=== PATIENT | male | born 1980 | race Caucasian/White ===

== ENCOUNTER 2021-09-10 11:58 | Outpatient (CLI) | payer BC, SELFPAY ==
[2021-09-10 14:47] LABS: SARS-CoV-2 RNA PCR Negative (Negative)
== END 2021-09-10 11:59 | disposition home or self-care (01) ==
LOC: CHSLAB 12:03
PROVIDERS: PCP Family Medicine; Visit Provider Family Medicine
DX: Z20.822 Contact with and (suspected) exposure to COVID-19 (principal)
CPT/HCPCS: C9803; U0003; U0005

== ENCOUNTER 2025-05-14 00:54 | Day surgery (SDC) | payer OTHER, SELFPAY ==
[2025-04-29 14:37] VITALS: BMI 37.6
--- OUTSIDE RECORDS SUMMARY | 2025-05-14 00:57 | XMS_ITS | Continuity of Care Document ---
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 Role Phone Barbara He MD Unavailable Unavailable Allergies, Adverse Reactions, Alerts Substance Reaction Status Criticality Penicillins Diarrhea Active No Information Medications Medication Instructions Dosage Effective Dates (start - stop) Status Comments Xolair 150 mg subcutaneous solution inject 2.4 milliliter (300mg) by Subcutaneous route every 4 weeks - Active EpiPen 2-Ravindra 0.3 mg/0.3 mL injection, auto-injector inject 0.3 milliliter by intramuscular route once as needed for anaphylaxis 0.3 MG - Active Benadryl 25 mg capsule take 2 capsule (5 0MG) by oral route every 4 - 6 hours as needed 50 MG - Active Procedures Procedure Date Est (Level 4) OFFICE/OUTPATIENT VISIT Au Xolair Drug Xolair Administration-Complex 7 Xolair Aministration-Complex 2 17 Est (Level 4) OFFICE/OUTPATIENT VISIT Ju Est (Level 4) OFFICE/OUTPATIENT VISIT Ja Est (Level 4) OFFICE/OUTPATIENT VISIT Est (Level 4) OFFICE/OUTPATIENT VISIT Ma Est (Level 3) OFFICE/OUTPATIENT VISIT De Est (Level 3) OFFICE/OUTPATIENT VISIT De Est (Level 3) OFFICE/OUTPATIENT VISIT Se Est (Level 3) OFFICE/OUTPATIENT VISIT Ju Perc Test New (Level 4) OFFICE/OUTPATIENT VISIT Wv Advance Directives Directive Yes / No Effective Date File Name No Information Encounters Encounter Description Practice Location Reason(s) For Visit Diagnoses Date Provider Providers Copied on Encounter [facility], [address] [place] [address], [place], [place], [id number], tel:[phone] [facility] No Information 7 Ying Jimenez. [address] [place] [address], [place], [place], [id number] , . tel: [phone] [facility], [address] [place] [address], [id number], tel:[phone] [facility] No Information 7 Anjali Oliveira. [address] [place] [address], [place], [place], [id number] , . tel: [phone] Est (Level 4) OFFICE/OUTPA TIENT VISIT [facility], [address] [place] [address], [id number], tel:[phone] [facility] hives (chief complaint) Idiopathic urticariaAngione urotic edema, subsequent encounter 7 Sybil Lund. [address] [place] [address], [place], [place], [id number] , [place]. tel: [phone] Referring Provider: Kevon Connelly, [address] [place] [address], [place], [address] . tel:[phone] Est (Level 4) OFFICE/OUTPA TIENT VISIT [facility], [address] [place] [address], [id number], [place] tel:[phone] [facility] hives (chief complaint) Idiopathic urticaria 6 Sybil Lund. [address] [place] [address], [id number] , . tel: [phone] Referring Provider: Kevon Connelly, [address] [place] [address], [place], [place], [address] [place] [address] . tel:[phone] Est (Level 4) OFFICE/OUTPA TIENT VISIT [facility], [address] [place] [address], [address] [place] [address], tel:[phone] [facility] hives (chief complaint) Urticaria 5 Sybil Lund. [address] [place] [address], [address] [place] [address] , [place]. tel:[phone] Referring Provider: Kevon Connelly, [address] [place] [address], [place], [place], [address] [place] [address] . tel:[phone] Est (Level 4) OFFICE/OUTPA TIENT VISIT [facility], [address] [place] [address], [address] [place] [address], tel:[phone] [facility] urticaria and angioedema (chief complaint) UrticariaAngione urotic edema, not elsewhere classified 4 Sybil Lund. [address] [place] [address], [address] [place] [address] , [place]. tel:[phone] Referring Provider: Kevon Connelly, [address] [place] [address], [place], [place], [address] [place] [address] . tel:[phone] Est (Level 4) OFFICE/OUTPA TIENT VISIT [facility], [address] [place] [address], [address] [place] [address], [place] tel:[phone] [facility] urticaria and angioedema (chief complaint) UrticariaAngione urotic edema, not elsewhere classified 3 Sybil Lund. [address] [place] [address], [address] [place] [address] , [place]. tel:[phone] Referring Provider: Kevon Connelly, [address] [place] [address], [place], [address] [place] [address] . tel:[phone] Est (Level 3) OFFICE/OUTPA TIENT VISIT [facility], [address] [place] [address], [address] [place] [address], tel:[phone] [facility] hives (chief complaint) Unspecified urticariaAngione urotic edema, not elsewhere classified 2 Sybil Lund. [address] [place] [address], [place] [address], [place], [address] [place] [address] , . tel: [phone] Referring Provider: Kevon Connelly, [address] [place] [address], [place], [address] [place] [address] . tel:[phone] Est (Level 3) OFFICE/OUTPA TIENT VISIT [facility], [address] [place] [address], [address] [place] [address], tel:[phone] [facility] hives (chief complaint) Unspecified urticaria 1 Sybil Lund. [address] [place] [address], [place] [address], [place], [address] [place] [address] , . tel: [phone] Referring Provider: Kevon Connelly, [address] [place] [address], [place], [address] [place] [address] . tel:[phone] Est (Level 3) OFFICE/OUTPA TIENT VISIT [facility], [address] [place] [address], [address] [place] [address], tel:[phone] [facility] hives (chief complaint) Unspecified urticariaAngione urotic edema, not elsewhere classified 1 Sybil Lund. [address] [place] [address], [place] [address], [place], [address] [place] [address] , . tel:[phone] Referring Provider: eKvon Connelly, [address] [place] [address], [place], [address] [place] [address] . tel:[phone] [facility], [address] [place] [address], [address] [place] [address], tel:[phone] [facility] Unspecified urticaria 1 Sybil Lund. [address] [place] [address], [place] [address], [place], [address] [place] [address] , . tel: [phone] Referring Provider: Kevon Connelly, [address] [place] [address], [place], [address] [place] [address] . tel:[phone] [facility], [address] [place] [address], [place], [address] [place] [address], tel:[phone] [facility] Unspecified urticaria 1 Sybil Lund. [address] [place] [address], [place], [address] [place] [address] , . tel:[phone] Referring Provider: Kevon Connelly, [address] [place] [address], [place], [address] [place] [address] . tel:[phone] Est (Level 3) OFFICE/OUTPA TIENT VISIT [facility], [address] [place] [address], [address] [place] [address], tel:[phone] [facility] urticaria (chief complaint) Unspecified urticariaUnspeci fied urticariaAngione urotic edema, not elsewhere classified 1 Sybil Lund. [address] [place] [address], [place], [address] [place] [address] , . tel: [phone] Referring Provider: Kevon Connelly, [address] [place] [address], [place], [address] [place] [address] . tel:[phone] New (Level 4) OFFICE/OUTPA TIENT VISIT [facility], [address] [place] [address], [address] [place] [address], tel:[phone] [facility] hives (chief complaint) Unspecified urticariaAngione urotic edema, not elsewhere classified 1 Sybil Lund. [address] [place] [address], [place], [address] [place] [address] , . tel:[phone] Referring Provider: Kevon Connelly, [address] [place] [address], [place], [address] [place] [address] . tel:[phone] Family History Family Member Type Diagnosis Age At Onset No Information Payers Payer name Insurance type Covered constitution party ID Luis M calderon(s) [facility] [place] [id number] Social History Type Description Quantity Date Captured Comments Alcohol Use Details Unknown Caffeine Use Details Unknown Tobacco Use Status No Information Smoking Status No Information Sex Male Chief Complaint And Reason For Visit No Information Reason For Referral Reason For Referral No Information Plan Of Treatment Date Type Action Status Future Order: Lab Order CBC With Differential ([id number]), Ordered on: Ordered Future Order: Lab Order Creatini ne, Serum ([id number]), Ordered on: Ordered Future Order: Lab Order Comp. Me tabolic Panel (14) ([id number]), Sent on: Sent Future Order: Lab Order CBC With Differential/Platelet ([id number]), Sent on: Sent History Of Present Illness Encounter Date Complaint History Of Prese nt Illness hives He has been unde r my care for chronic idiopathic urticaria for 6 years and was last seen a year ago. He had most recently been on cyclosporine. He has had periods of control and periods without any symptoms even without treatment for up to 6 months; however, he recently noted that he continued to have hives in spite of use of cyclosporine, so he stopped. He obtains relief only from Benadryl. He takes up to 75 mg every 4 hours and has not had sedation with this dose. He has not been on oral steroids in the past year, and they typically have afforded only litte relief. He has has some bouts of angioedema. He has missed work before but not recently due to the hifes. He repots that ibuprofen causes the hives to flare. He does tolerate Tylenol. He has no new complaints. He is considering starting Xolair since other modes of therapy have failed to control his hives hives He was last seen in September 2014. He took cyclosporine for a few months, and then stopped. He weaned off it and was asymptomatic until a month ago . They gradually returned and then have been more intense. He is now taking 75 mg of Benadryl three times a day. He does find this sedating. He occasionally takes Zantac when he has heartburn. He had had a few episodes of tongue or lip swelling. He has not missed work. He just takes more Benadryl. He has not been on oral steroids. he has otherwise been well. hives He returns for a visit regarding his hives. He was asymptomatic between October and May and stopped all medications. His symptoms recurred in May and he resumed a regimen of Benadryl 25 mg twice a day, Zyrtec 10 mg a day and 100 mg of cyclosporine a day. He has not had any angioedema and has not used any oral steroids. He has not had any other illness. Sometimes the hives interfere with his work. Functional Status Date Functional Assessmen t No Information Instructions Date Instruction Additional Infor karuna Discussed pharmacologic options Related to Urticaria We discussed phamacologic option s for urticaria Related to Urticaria Assessments Type Assessment Date No Information Patient Care Teams Name Effective Dates (start - stop) Status Members No Information
[2025-05-14 06:24] VITALS: BP 99/55; PULSE 74; RESP 18; TEMP 36.1; O2SAT 99
[2025-05-14] MEDS: LACTATED RINGERS 1,000 ML 150 ML IV CONT (06:57)
--- NOTE | 2025-05-14 07:14 | WPDANESEPPF ---
Anes - Initial Pre Proc Eval Procedure: Operation Date: 05/14/25 07:30 Proposed Procedures p Screening Colonoscopy - Kasi Tesfaye DO Date/Time: 05/14/25 07:14 Surgeon: Kasi Tesfaye DO Pre Op Diagnosis: Neoplasm screening Patient Data Age: 44 Gender: M Height: 1.7 m Weight: 106.2 kg Last Vital Signs Temp 36.1 C L 05/14/25 06:24 Pulse 74 05/14/25 06:24 Resp 18 05/14/25 06:24 BP 99/55 L 05/14/25 06:24 Pulse Ox 99 05/14/25 06:24 O2 Del Method Room Air 05/14/25 06:24 Allergies Allergy/AdvReac Type Severity Reaction Status Date / Time Penicillins AdvReac Mild Diarrhea Verified 05/14/25 06:22 Home Medications ?Medication ?Instructions ?Recorded ?Confirmed ?Type diphenhydramine HCl 25 mg capsule 25 mg PO QHS hives 02/17/23 05/14/25 History lisinopril 20 mg tablet 20 mg PO DAILY #90 tabs 02/20/25 05/14/25 Rx metformin 500 mg tablet,extended 500 mg PO BID #180 tabs 02/20/25 05/14/25 Rx release 24 hr rosuvastatin 10 mg tablet 10 mg PO DAILY #90 tabs 03/01/25 05/14/25 Rx Laboratory Tests 05/14/25 06:39 POC Capillary Glucose 203 H mg/dl (65-105) Patient hx anesthesia problems: none Family hx anesthesia problems: none Results Review: All pre-operative results and documents have been reviewed as part of the pre-operative evaluation. [facility] Past Medical History Medical History Type 2 diabetes mellitus without complication, without long-term current use of insulin Mixed hyperlipidemia Essential (primary) hypertension Social History Social History Smoking status: Never smoker Alcohol intake: current Drinks per week: 1 Alcohol use details: some weeks none and some times more, does not drink during the week at all Substance use: never Substance use type: does not use Lack of Transportation: No Lack of Food: Never True Current Housing: I Have Housing Concerned About Future Housing: No Difficulty Paying Gas/Electric Bills: No Difficulty Paying for Meds: No Currently Unemployed: No Education: Associate Degree Difficulty w/ Childcare or Family Care: No Living arrangements: with family Occupation/Education: occupation Gender identity (if verbalized by the patient): Male Sexual Orientation (if Verbalized by the Patient): Straight or Heterosexual Spiritual care concerns: No Anes - Eval Final PreProcedure Day of Procedure 05/14/25 07:14 Results Review: All pre-operative results and documents have been reviewed as part of the pre-operative evaluation. Informed Consent: The patient's anesthetic plan and its attendant risks and benefits were discussed with the patient/family/POA. Questions were solicited and answers provided to the satisfaction of the patient/family/POA.
--- NOTE | 2025-05-14 07:30 | PM.IMHP ---
H&P: HPI History of Present Illness Date/Time: 05/14/25 07:30 Chief Complaint: Screening for colorectal cancer Narrative: this is a 44-year-old man who presents for colonoscopy. He has never had a colonoscopy before. His hematochezia or melena. He denies family history of colon cancer. Review of Systems Review of Systems: All systems reviewed & are unremarkable except as noted in HPI and below Constitutional: Constitutional: Denies chills, Denies fever(s), Denies headache(s) and Denies weight loss Eyes: Eyes: Denies change in vision ENT: Denies dizziness, Denies headache(s), Denies neck mass and Denies throat swelling Cardiovascular: Cardiovascular: Denies chest pain, Denies lightheadedness and Denies dyspnea Respiratory: Respiratory: Denies cough, Denies dyspnea and Denies wheezing Gastrointestinal: Gastrointestinal: Denies abdominal pain, Denies change in bowel habits, Denies nausea and Denies vomiting Genitourinary: Genitourinary: Denies hematuria and Denies dysuria Musculoskeletal: Musculoskeletal: Reports as per HPI Integumentary/Breasts: Skin/Breast: Reports as per HPI Neurologic: Denies dizziness and Denies headache(s) Allergic/Immunologic: Allergic/Immunologic: Denies throat swelling and Denies wheezing [facility] Past Medical History Medical History Type 2 diabetes mellitus without complication, without long-term current use of insulin Mixed hyperlipidemia Essential (primary) hypertension Social History Social History Smoking status: Never smoker Alcohol intake: current Drinks per week: 1 Alcohol use details: some weeks none and some times more, does not drink during the week at all Substance use: never Substance use type: does not use Lack of Transportation: No Lack of Food: Never True Current Housing: I Have Housing Concerned About Future Housing: No Difficulty Paying Gas/Electric Bills: No Difficulty Paying for Meds: No Currently Unemployed: No Education: Associate Degree Difficulty w/ Childcare or Family Care: No Living arrangements: with family Occupation/Education: occupation Gender identity (if verbalized by the patient): Male Sexual Orientation (if Verbalized by the Patient): Straight or Heterosexual Spiritual care concerns: No Meds Home Medications and Allergies Home Medications ?Medication ?Instructions ?Recorded ?Confirmed ?Type diphenhydramine HCl 25 mg capsule 25 mg PO QHS hives 02/17/23 05/14/25 History lisinopril 20 mg tablet 20 mg PO DAILY #90 tabs 02/20/25 05/14/25 Rx metformin 500 mg tablet,extended 500 mg PO BID #180 tabs 02/20/25 05/14/25 Rx release 24 hr rosuvastatin 10 mg tablet 10 mg PO DAILY #90 tabs 03/01/25 05/14/25 Rx Allergies Allergy/AdvReac Type Severity Reaction Status Date / Time Penicillins AdvReac Mild Diarrhea Verified 05/14/25 06:22 Vital Signs Vital Signs - 24 hr 05/14/25 06:24 Temperature 97 F L Pulse Rate 74 Respiratory Rate 18 Blood Pressure 99/55 L Pulse Oximetry 99 Oxygen Delivery Room Air Exam Const: General: no acute distress and alert Orientation/consciousness: patient oriented x3 HENMT: Head: normocephalic and atraumatic Ears: hearing grossly normal bilaterally Face/Nose/Sinus: Normal nares present Mouth: Yes Normal oral and palatal mucosa present Eyes: Periorbital: periorbital findings normal Sclera: sclerae normal EOM: EOMs intact bilaterally Neck: Neck: normal visual inspection, no lymphadenopathy and trachea midline Chest: Chest palpation & inspection: normal inspection of the chest Resp: Effort & Inspection: normal respiratory effort Auscultation: clear to auscultation bilaterally Cardio: Jugular venous distension: no JVD Rate: regular rate Rhythm: regular rhythm Heart sounds: S1 normal heart sound present and S2 normal heart sound present Peripheral pulses: Peripheral pulses 2+ throughout GI: Inspection: normal to inspection GI Palp: Yes Soft to palpation, No Tenderness to palpation present (GI), No Guarding due to palpation present (GI) and No Rebound tenderness present Percussion: Yes normal to percussion Auscultation: normal bowel sounds : General: Yes no CVA tenderness Back/Spine/Pelvis: Back: no CVA tenderness Neuro: General: patient oriented x3, no focal motor deficits and CN's II-XI intact bilaterally Cognition (Neuro): normal cognition Speech: normal speech Motor exam (neuro): 5/5 motor strength present throughout Extrem: General: capillary refill normal and no clubbing, cyanosis or edema Assessment and Plan Assessment and plan (1) Screening for colorectal cancer: Code(s): Z12.11 - Encounter for screening for malignant neoplasm of colon; Z12.12 - Encounter for screening for malignant neoplasm of rectum Status: Acute Assessment and Plan: I have recommended colonoscopy. I have discussed the procedure, risks, benefits, and alternatives. Questions were answered. Patient is agreeable to proceed.
--- NOTE | 2025-05-14 07:44 | S_PTH ---
PATIENT: Kevon Hennessy LOC: [facility] U#:[id number] AGE/SX: 44/M ROOM: RE05/14/[address]: Kasi Tesfaye DO : 1980 BED: DIS: 05/14/2025 SPEC #: [id number] RECD: 05/14/25 08:56 STATUS: BAN REQ #: [id number] MONTEZ: 05/14/25 07:[address]: Kasi Tesfaye DEPT: [facility] Surgical RECD BY: Jona Sevilla ENTERED: 05/14/25 08:56 SP TYPE: Surgical OTHR DR: Dionicio Garcia MD Tissues: A - Rectal Polyp Procedures: Hematoxylin and Eosin Stain Gross and Microscopic Level 4
[2025-05-14 07:46] VITALS: BP 78/46; PULSE 72; RESP 20; O2SAT 98
[2025-05-14 07:56] VITALS: BP 92/59; PULSE 77; RESP 21; O2SAT 100
[2025-05-14 08:06] VITALS: BP 100/60; PULSE 69; RESP 26; O2SAT 100
== END 2025-05-14 08:17 | disposition home or self-care (01) ==
PROVIDERS: PCP Family Medicine; Visit Provider Surgery
PROC: 0DJD8ZZ Inspection of Lower Intestinal Tract, Via Natural or Artificial Opening Endoscopic (ICD-10-PCS; CPT 45378; principal; 2025-05-14 07:30)
DX: Z12.11 Encounter for screening for malignant neoplasm of colon (principal); D12.8 Benign neoplasm of rectum; E11.9 Type 2 diabetes mellitus without complications; E78.2 Mixed hyperlipidemia; I10 Essential (primary) hypertension; Z79.84 Long term (current) use of oral hypoglycemic drugs
CPT/HCPCS: 45380; 45385; 82948; 88305; J2003; J2371; J2704; J7120